=== PATIENT | male | born 1955 | race Caucasian/White ===

== ENCOUNTER 2017-10-24 02:33 | Day surgery (SDC) | payer MEDICARE, OTHER ==
[~2017-10-24] VITALS: Ht 175.3 cm; Wt 105.5 kg
[~2017-10-24 02:33] MED LIST: ALBUIS INH; ALLO100 PO; ALLO300 PO; ALUPURINOL; AMLO10 PO; ASPI325 PO; ASPI81CH PO; ATOR80 PO; Anecream 4% Ki1 EACH TOP; BENZ100A PO; CARV25 PO; CENTRUM SILVER1 EAC1 PO; CENTRUM SILVER1 EAC2 PO; CHOL10002; CLON.2 PO; CLOP75 PO; Calmoseptine Oi71 GM TOP; ESCI20 PO; FISH1000 PO; FURO40 PO; FURO80 PO; GABA100 PO; HYDACE5 PO; Humalog Mi100 UNIT/4; IBUP800 PO; INSULANPEN SC; ISOSORBIDE PO; Isosorbide Mono30 MG PO; LEVSOD100 PO; LEVSOD125 PO; LEVSOD175 PO; LISI10 PO; LISI20 PO; LORA.5 PO; M930 ML MC; MAGOXI400 PO; MELATONIN5 M1 PO; METO100 PO; METO100ER PO; NARCAN4 MG INH; NIFE30ER PO; NIFE60ER PO; NITR.4SL SL; OMEG1CAP30 PO; OMEP20ER PO; Oxycodone HCl20 M1 PO; Oxycodone HCl5 M1 PO; POTA10T PO; PRAV40 PO; ROSU10TA PO; Senna8.6 MG PO; Synthroid75 MCG PO; TESTOSTERONE SL; TESTOSTERONE TOP
== END 2017-10-24 12:00 | disposition home or self-care (01) ==
LOC: MHTC 02:33
PROC: B2181ZZ Fluoroscopy of Left Internal Mammary Bypass Graft using Low Osmolar Contrast (ICD-10-PCS; principal; 2017-10-24)
DX: I35.0 Nonrheumatic aortic (valve) stenosis (principal); E78.5 Hyperlipidemia, unspecified; E11.22 Type 2 diabetes mellitus with diabetic chronic kidney disease; I12.0 Hypertensive chronic kidney disease with stage 5 chronic kidney disease or end stage renal disease; N18.6 End stage renal disease; E03.9 Hypothyroidism, unspecified; E66.01 Morbid (severe) obesity due to excess calories; I35.8 Other nonrheumatic aortic valve disorders; E66.9 Obesity, unspecified; F41.8 Other specified anxiety disorders; Z99.2 Dependence on renal dialysis; Z95.1 Presence of aortocoronary bypass graft; Z68.34 Body mass index [BMI] 34.0-34.9, adult; Z95.0 Presence of cardiac pacemaker
CPT/HCPCS: 82947; 93005; 93010; 93455; 99152; 99153; C1769; C1894; J1644; J2250; J3010; J7030; Q9967

== ENCOUNTER 2019-02-18 03:44 | Emergency (ER) | payer MEDICARE, OTHER ==
[~2019-02-18] VITALS: Ht 172.7 cm; Wt 108.9 kg
== END 2019-02-18 05:00 | disposition home or self-care (01) ==
LOC: ER 03:44
DX: R04.0 Epistaxis (principal); Z79.899 Other long term (current) drug therapy; Z79.4 Long term (current) use of insulin; E11.9 Type 2 diabetes mellitus without complications
CPT/HCPCS: 30905; 99283-25

== ENCOUNTER 2019-05-24 17:48 | Emergency (ER) | payer MEDICARE, OTHER ==
[~2019-05-24] VITALS: Ht 172.7 cm; Wt 104.3 kg
== END 2019-05-24 20:05 | disposition home or self-care (01) ==
LOC: ER 17:48
DX: R04.0 Epistaxis (principal); Z79.899 Other long term (current) drug therapy; Z79.4 Long term (current) use of insulin; I10 Essential (primary) hypertension; E11.9 Type 2 diabetes mellitus without complications
CPT/HCPCS: 99283

== ENCOUNTER → 2019-11-13 | Outpatient (CLI) | payer MEDICARE, OTHER ==
[2019-11-13 10:17] LABS: BASOPHILS ABSOLUTE AUTO 0.08 K/mm3 (0.00-0.23); BASOPHILS PERCENT AUTO 1 % (0-2); EOSINOPHILS ABSOLUTE AUTO 0.28 K/mm3 (0.00-0.68); EOSINOPHILS PERCENT AUTO 3 % (0-6); Hematocrit 34.4 % (37.0-53.0); Hemoglobin 11.6 g/dL (13.5-17.5); IMMATURE GRAN ABSOLUTE AUTO 0.04 K/mm3 (0.00-0.10); IMMATURE GRAN PERCENT AUTO 1 % (0-1); LYMPHOCYTES ABSOLUTE AUTO 1.88 K/mm3 (0.84-5.20); LYMPHOCYTES PERCENT AUTO 23 % (21-46); MONOCYTES ABSOLUTE AUTO 0.76 K/mm3 (0.16-1.47); MONOCYTES PERCENT AUTO 9 % (4-13); Mean Corpuscular HGB 35.9 pg (26.0-34.0); Mean Corpuscular HGB Conc 33.7 g/dL (31.5-36.5); Mean Corpuscular Volume 107 fL (80-100); NEUTROPHILS PERCENT AUTO 64 % (41-73); Platelet Count 198 K/mm3 (150-400); RDW Coefficient Variation 13.6 % (11.7-14.2); RDW Standard Deviation 53.5 fL (35.1-46.3); Red Blood Cell Count 3.23 M/mm3 (4.30-5.90); White Blood Cell Count 8.34 K/mm3 (4.00-11.30)
== END ==
LOC: LAB DAV 10:08 → LAB 10:08 → LAB SHORT 10:08
PROVIDERS: Internal Medicine
DX: N18.6 End stage renal disease (principal)
CPT/HCPCS: 85025

== ENCOUNTER 2021-05-24 10:19 | Emergency (ER) | payer MEDICARE, OTHER ==
[~2021-05-24] VITALS: Ht 172.7 cm; Wt 117.0 kg
[2021-05-24] MEDS ORDERED: EUTHYROX175 MC1 PO (10:48)
[2021-05-24] MEDS ORDERED: OMEP20ER PO (10:49)
[2021-05-24] MEDS ORDERED: SEVEC800 PO (10:50)
[2021-05-24] MEDS ORDERED: Crestor20 MG PO (10:50)
[2021-05-24] MEDS ORDERED: Aspir 8181 MG PO (10:50)
[2021-05-24] MEDS ORDERED: ZOLPIDEM TARTRA10 MG PO (10:51)
[2021-05-24] MEDS ORDERED: RENVELA800 MG PO (10:52)
[2021-05-24] MEDS ORDERED: HUMALOG KW100 UNIT/1 SC (10:52)
[2021-05-24] MEDS ORDERED: BASAGLAR K100 UNIT/3 SC (10:52)
[2021-05-24] MEDS ORDERED: CEPH500 PO (11:35)
== END 2021-05-24 11:43 | disposition home or self-care (01) ==
LOC: ER 10:19
DX: L03.115 Cellulitis of right lower limb (principal); S80.811A Abrasion, right lower leg, initial encounter; E11.9 Type 2 diabetes mellitus without complications; Z79.4 Long term (current) use of insulin; Z79.899 Other long term (current) drug therapy; W54.1XXA Struck by dog, initial encounter
CPT/HCPCS: 90714; 99282; A9270

== ENCOUNTER 2021-08-10 10:36 | Day surgery (SDC) | payer MEDICARE, OTHER ==
[~2021-08-10] VITALS: Ht 172.7 cm; Wt 116.5 kg
[~2021-08-10 10:36] MED LIST changes: +Aspir 8181 MG PO; +BASAGLAR K100 UNIT/3 SC; +CEPH500 PO; +Crestor20 MG PO; +EUTHYROX175 MC1 PO; +HUMALOG KW100 UNIT/1 SC; +RENVELA800 MG PO; +SEVEC800 PO; +ZOLPIDEM TARTRA10 MG PO
[2021-08-10 11:21] LABS: BASOPHILS ABSOLUTE AUTO 0.06 K/mm3 (0.00-0.23); BASOPHILS PERCENT AUTO 1 % (0-2); EOSINOPHILS ABSOLUTE AUTO 0.25 K/mm3 (0.00-0.68); EOSINOPHILS PERCENT AUTO 4 % (0-6); Hematocrit 33.6 % (37.0-53.0); Hemoglobin 10.9 g/dL (13.5-17.5); IMMATURE GRAN ABSOLUTE AUTO 0.03 K/mm3 (0.00-0.10); IMMATURE GRAN PERCENT AUTO 0 % (0-1); LYMPHOCYTES ABSOLUTE AUTO 0.87 K/mm3 (0.84-5.20); LYMPHOCYTES PERCENT AUTO 12 % (21-46); MONOCYTES ABSOLUTE AUTO 0.94 K/mm3 (0.16-1.47); MONOCYTES PERCENT AUTO 13 % (4-13); Mean Corpuscular HGB 36.2 pg (26.0-34.0); Mean Corpuscular HGB Conc 32.4 g/dL (31.5-36.5); Mean Corpuscular Volume 112 fL (80-100); Mean Platelet Volume 10.3 fL (9.1-12.4); NEUTROPHILS ABSOLUTE AUTO 4.95 K/mm3 (1.96-9.15); NEUTROPHILS PERCENT AUTO 70 % (41-73); Platelet Count 115 K/mm3 (150-400); RDW Coefficient Variation 15.2 % (11.7-14.2); RDW Standard Deviation 63.1 fL (35.1-46.3); Red Blood Cell Count 3.01 M/mm3 (4.30-5.90)
[2021-08-10 11:36] LABS: International Normalized Ratio 1.16; Prothrombin Time Results 12.1 Sec (9.7-11.5)
[2021-08-10 11:42] LABS: Bun/Creatinine Ratio 7.9 (12.0-20.0); Calcium, Blood 8.7 mg/dL (8.5-10.1); Creatinine, Blood 6.74 mg/dL (0.60-1.20); Potassium, Blood 5.2 mmol/L (3.5-5.5)
--- NOTE | 2021-08-10 13:22 | NUR ---
PATIENT IS VERY NERVOUS AND ORDER OBTAINED BY DR. OLMEDO TO GIVEN VERSED 2 MG PIV . AT THE BEDSIDE. SIDE RAILS UP X 2. CALL LIGHT IN REACH.
--- NOTE | 2021-08-10 16:59 | NUR ---
DISCHARGE PT REMAINED A&OX3 AND DENIED ANY PAIN DURING THIS TIME. LEFT ARM FISTULA-WOGGLE SUTURES REMOVED-SITES COVERED WITH CLOTH DOTS. IV DC'D WITH CANULA IN TACT. PT ABLE TO DRESS SELF. DISCHARGE PAPERWORK GONE OVER WITH PT. PT VERBALLY STATED THE UNDERSTANDING OF THE DISCHARGE EDUCATION AND DENIED ANY QUESTIONS AT THIS TIME. PT WHEELED OUT BY MALLIKA Quiñonez RN. FOLLOW-UP ORDERS FAXED TO DR. OLMEDO'S OFFICE FOR PROCESSING.
== END 2021-08-10 23:11 | disposition home or self-care (01) ==
LOC: MHTC 10:36
PROVIDERS: Internal Medicine
DX: T82.590A Other mechanical complication of surgically created arteriovenous fistula, initial encounter (principal); N18.6 End stage renal disease
CPT/HCPCS: 36901; 36907; 76937; 80048; 85025; 85610; 99152; 99153; C1725; C1769; C1887; C1894; C2623; J1644; J2250; J3010; J7030; Q9967

== ENCOUNTER → 2021-08-29 | Outpatient (CLI) | payer MEDICARE, OTHER ==
[2021-08-29 20:00] LABS: Prostate Specific Antigen 0.132 ng/mL (0.000-4.000)
== END | disposition home or self-care (01) ==
LOC: LAB SHORT 18:26 → LAB 18:26
PROVIDERS: Nurse Practitioner Family
DX: Z12.5 Encounter for screening for malignant neoplasm of prostate (principal); E03.9 Hypothyroidism, unspecified; E11.9 Type 2 diabetes mellitus without complications; R39.11 Hesitancy of micturition
CPT/HCPCS: 83036; 84443; G0103